=== PATIENT | male | born 1960 | race Caucasian/White ===

== ENCOUNTER 2020-08-10 11:32 | Outpatient (CLI) | payer OTHER, SELFPAY ==
[2020-08-10 12:24] LABS: Anion Gap 5 mmol/L (8-16); Blood Urea Nitrogen 16 mg/dL (9-20); Calcium 9.5 mg/dL (8.4-10.2); Carbon Dioxide 27 mmol/L (22-30); Chloride 105 mmol/L (98-107); Estimated Glomerular Filt Rate > 60; Glucose 105 mg/dL (75-110); Potassium 4.1 mmol/L (3.4-5.0); Sodium 137 mmol/L (137-145)
[2020-08-10 12:55] LABS: Prostate Specific Antigen 1.1 ng/mL (< OR = 4.0)
== END 2020-08-10 11:33 | disposition home or self-care (01) ==
LOC: ANHLAB 11:35
PROVIDERS: PCP Family Medicine; Visit Provider Nurse Practitioner Family
DX: F41.9 Anxiety disorder, unspecified (principal); Z12.5 Encounter for screening for malignant neoplasm of prostate
CPT/HCPCS: 36415; 80048; 84153; 84443; G0103

== ENCOUNTER 2021-06-20 10:49 | Outpatient (CLI) | payer OTHER, SELFPAY ==
--- NOTE | ~2021-06-20 | XR_ITS ---
EXAMINATION: XR knee RT 3V DATE: 06/20/2021 11:08 INDICATION: Right knee pain. TECHNIQUE: 3 views of right knee were obtained. COMPARISON: None. FINDINGS: Bone alignment is normal. No fracture. There is moderate osteoarthritis of patellofemoral c ompartment and mild osteoarthritis of medial and lateral compartments. No knee joint effusion. IMPRESSION: 1. Moderate right knee osteoarthritis. Reviewed, dictated and finalized at location A.
== END 2021-06-20 10:50 | disposition home or self-care (01) ==
PROVIDERS: PCP Family Medicine; Visit Provider Nurse Practitioner Family
DX: M25.569 Pain in unspecified knee (principal); W19.XXXA Unspecified fall, initial encounter; M17.11 Unilateral primary osteoarthritis, right knee
CPT/HCPCS: 73562

== ENCOUNTER 2022-05-11 11:35 | Outpatient (CLI) | payer OTHER, SELFPAY ==
[2022-05-11 11:48] LABS: Basophils Percent Auto 0.7 % (0.2-1.2); Eosinophils Percent Auto 0.7 % (0-4.4); Hematocrit 43.4 % (42.0-52.0); Immature Granulocyte Absolute 0.02 K/mm3 (0.00-0.031); Immature Granulocyte Percent A 0.4 % (0-0.5); Lymphocytes Absolute Auto 1.35 K/mm3 (0.9-3.2); Lymphocytes Percent Auto 24.3 % (18.3-44.2); Mean Corpuscular HGB Conc 32.3 g/dl (32-36); Mean Corpuscular Hemoglobin 32.4 pg (26-34); Mean Corpuscular Volume 100.5 fl (80-100); Mean Platelet Volume 9.4 fl (7.4-10.4); Monocytes Absolute Auto 0.6 K/mm3 (0.1-0.6); Monocytes Percent Auto 10.5 % (2.6-8.5); Neutrophils Absolute Auto 3.5 K/mm3 (1.3-6.7); Neutrophils Percent Auto 63.4 % (45.5-73.1); Platelet Count Result 217 k/mm3 (150-375); Red Blood Count 4.32 M/mm3 (4.6-6.20); White Blood Count 5.6 K/mm3 (4.5-10.0)
[2022-05-11 12:02] LABS: Alanine Aminotransferase 21 U/L (6-50); Albumin Level 4.2 g/dL (3.5-5.1); Alkaline Phosphatase 130 U/L (38-126); Anion Gap 6 mmol/L (8-16); Aspartate Amino Transferase 25 U/L (17-59); Bilirubin,Total 0.9 mg/dL (0.2-1.3); Blood Urea Nitrogen 11 mg/dL (9-20); Calcium 9.1 mg/dL (8.4-10.2); Carbon Dioxide 25 mmol/L (22-30); Chloride 107 mmol/L (98-107); Cholesterol 132 mg/dL (0-200); Estimated Glomerular Filt Rate > 60; Glucose 107 mg/dL (65-110); HDL Direct 45 mg/dL; Potassium 4.2 mmol/L (3.4-5.0); Sodium 138 mmol/L (137-145); Triglycerides 122 mg/dL (<150); Uric Acid 6.5 mg/dL (3.5-8.5)
[2022-05-11 12:08] LABS: Iron 85 ug/dL (49-181)
[2022-05-11 12:13] LABS: LDL Cholesterol Direct 54 mg/dL
[2022-05-11 12:32] LABS: Prostate Specific Antigen 1.1 ng/mL (< OR = 4.0)
[2022-05-11 12:37] LABS: Vitamin D 25 Hydroxy 61.8 ng/mL
[2022-05-11 12:38] LABS: Percent Iron Saturation 26 % (20-50)
== END 2022-05-11 11:36 | disposition home or self-care (01) ==
PROVIDERS: PCP Family Medicine; Visit Provider Nurse Practitioner Family
DX: Z12.5 Encounter for screening for malignant neoplasm of prostate (principal); E61.1 Iron deficiency; E55.9 Vitamin D deficiency, unspecified; I10 Essential (primary) hypertension; E78.2 Mixed hyperlipidemia; M10.9 Gout, unspecified
CPT/HCPCS: 36415; 80053; 80061; 82306; 82728; 83540; 83550; 84153; 84550; 85025; G0103

== ENCOUNTER 2023-10-30 09:07 | Outpatient (CLI) | payer OTHER, SELFPAY ==
[2023-10-30 09:49] LABS: Alanine Aminotransferase 40 U/L (6-50); Albumin Level 4.5 g/dL (3.5-5.1); Alkaline Phosphatase 124 U/L (38-126); Anion Gap 7 mmol/L (8-16); Aspartate Amino Transferase 37 U/L (17-59); Bilirubin,Total 1.1 mg/dL (0.2-1.3); Blood Urea Nitrogen 11 mg/dL (9-20); Calcium 9.4 mg/dL (8.4-10.2); Carbon Dioxide 26 mmol/L (22-30); Chloride 105 mmol/L (98-107); Cholesterol 128 mg/dL (0-200); Estimated Glomerular Filt Rate > 60; Glucose 103 mg/dL (65-110); HDL Direct 49 mg/dL; Hematocrit 48.6 % (42.0-52.0); Hemoglobin 15.7 g/dL (14.0-18.0); Mean Corpuscular HGB Conc 32.3 g/dl (32-36); Mean Corpuscular Hemoglobin 32.2 pg (26-34); Mean Corpuscular Volume 99.6 fl (80-100); Mean Platelet Volume 10.2 fl (7.4-10.4); Platelet Count Result 218 k/mm3 (150-375); Potassium 4.1 mmol/L (3.4-5.0); Red Blood Count 4.88 M/mm3 (4.6-6.20); Red Cell Distribution Width 13.8 % (11.5-14.5); Sodium 138 mmol/L (137-145); Triglycerides 103 mg/dL (<150); White Blood Count 6.6 K/mm3 (4.5-10.0)
[2023-10-30 10:02] LABS: LDL Cholesterol Direct 56 mg/dL
[2023-10-30 10:19] LABS: Prostate Specific Antigen 1.7 ng/mL (< OR = 4.0)
== END 2023-10-30 09:08 | disposition home or self-care (01) ==
LOC: ANHLAB 09:09
PROVIDERS: PCP Family Medicine; Visit Provider Nurse Practitioner Family
DX: E78.2 Mixed hyperlipidemia (principal); I10 Essential (primary) hypertension; N52.9 Male erectile dysfunction, unspecified; Z13.29 Encounter for screening for other suspected endocrine disorder
CPT/HCPCS: 36415; 80053; 80061; 84153; 84443; 85027

== ENCOUNTER 2025-08-19 10:06 | Outpatient (CLI) | payer MEDICARE, SELFPAY ==
--- OUTSIDE RECORDS SUMMARY | 2025-08-19 10:50 | XMS_ITS | Clinical Summary ---
Author Organization [facility] Address [address] [place] [address] Care Team Providers Care Counter Molder Name Role Phone Boy Tirado MD Primary Care Provider [phone] Source Comments [facility],non-owned Affiliates and Associated Physician Practices is amultiple site organization consisting of ambulatory clinics and hospital sitesin [place], [place], [place] and [place]. This disclosure is being madepursuant to the Care Everywhere program and may not contain all information available regarding this patient. Last updated 18.[facility] Allergies No known active allergies Medications * Be aware that medications may not be up to date on this document. Alwaysverify current medications with the patient. aspirin EC (ECOTRIN) 81 MG tabletIndications:Non specific abnormal electrocardiogram (ECG) (EKG),Hypertriglyceri demia,Inferolateral myocardial infarction (HCC) Take 81 mg by mouth once daily Active multivitamin daily (THERAGRAN) tabletIndications:Non specific abnormal electrocardiogram (ECG) (EKG),Hypertriglyceri demia,Inferolateral myocardial infarction (HCC) Take 1 Tab by mouth daily with food Active PARoxetine (PAXIL) 20 MG tablet Take 20 mg by mouth once daily 05/03/20 16 Active allopurinol (ZYLOPRIM) 300 MG tablet Take 300 mg by mouth once daily 05/21/20 17 Active vitamin D (CHOLECACIFEROL) 5000 UNITS capsule Take 5,000 Units by mouth once daily Active ferrous sulfate 325 (65 FE) MG tablet Take 325 mg by mouth daily with breakfast Active metoprolol succinate XL 24hr (TOPROL XL) 25 MG tablet TAKE ONE TABLET BY MOUTH ONCE DAILY 30 tablet 3 07/29/20 18 Active atorvastatin (LIPITOR) 80 MG tablet TAKE ONE TABLET BY MOUTH ONCE DAILY 30 tablet 11 12/01/19 20 Active Active Problems Problem Noted Date Diagnosed Date Coronary artery disease invo lving [place] coronary artery without angina pectoris 05/04/2016 Overview (05/04/2016): 05/04 CAD/Cath - PB hypo; EF - 55 - 100% mRCA; 100% pCx - 80% diag; 50% mLAD with negative FFR HTN (hypertension) 05/04/2016 Dyslipidemia 05/04/2016 Social History Tobacco Use Types Packs/Day Years Used Date Smoking Tobacco: Former Cigarettes 0.5 10 Smokeless Tobacco: Never Tobacco Cessation:Ready to Q uit: No Alcohol Use Standard Drinks/Week Comments Yes 2 (1 standard drink = 0.6 oz pur e alcohol) Sex and Gender Information Value Date Recorded Sex Assigned at Not on file 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 Gender Identity Not on file Sexual Orientation Not on file Last Filed Vital Signs Vital Sign Reading Time Taken Comments Blood Pressure 144/84 06/14/2017 10:59 AM CDT Pulse 65 06/14/2017 10:59 AM CDT Temperature - - Respiratory Rate 16 05/04/2016 12:55 PM CDT Oxygen Saturation 95% 06/14/2017 10:59 AM CDT Inhaled Oxygen Concentration - - Weight 108 kg (238 lb) 06/14/2017 10:59 AM CDT Height 175.3 cm (5' 9) 06/14/2017 10:59 AM CDT Body Mass Index 35.15 06/14/2017 10:59 AM CDT Plan of Treatment Health Maintenance Due Date Last Done Comments COLOGUARD (AGES 45-75) - COL ON CA SCREENING 1960 COLON MONITORING 1960 COLONOSCOPY - COLON CA SCREENING 1960 CT COLONOGRAPHY - COLON CA SCREENING 1960 Colorectal Cancer Screening 1960 FIT - COLON CA SCREENING 1960 FLEX SIG - COLON CA SCREENING 1960 HIV SCREENING 1975 HEPATITIS C SCREENING 08/27/1978 DTAP/TDAP/TD VACCINES (1 - Tdap) 1979 PNEUMOCOCCAL VACCINE 50+ (1 of 1 - PCV) 2010 ZOSTER VACCINE (1 of 2) 2010 SCREENING FOR DIABETES 06/14/2017 DEPRESSION SCREENING 11/19/2024 COVID-19 VACCINE (2023-2 5 season) 2025 INFLUENZA VACCINE (#1) 2025 Respiratory Syncytial Virus (RSV) Vaccine Pt: or over 60 yrs (1 - 1-dose 75+ series) 2035 HEPATITIS B VACCINE Aged Out No longe r eligible based on patient's age to complete this topic HIB VACCINE Aged Out No longer eligi ble based on patient's age to complete this topic HPV VACCINE Aged Out No longer eligi ble based on patient's age to complete this topic MENINGOCOCCAL (Group B) VACC INE SHARED DECISION-MAKING Aged Out No longer eligibl e based on patient's age to complete this topic MENINGOCOCCAL GROUPS A/C/Y/W VACCINE Aged Out No longer eligible b ased on patient's age to complete this topic Insurance ANTHEM Care Teams Counter Molder Relationship Specialty Start Date End Date Boy Tirado MD [address] [place] [address] PCP - General Family Medicine 04/14/16
--- OUTSIDE RECORDS SUMMARY | 2025-08-19 10:50 | XMS_ITS | Clinical Summary ---
Author Organization [facility] Address [address] [place] [address] Care Team Providers Care Psychotherapist Social Worker Name Role Phone Boy Tirado MD Primary Care Provider [phone] Allergies No known active allergies Medications allopurinol (ZYLOPRIM) 300 mg tablet Take 1 tablet (300 mg total) by mouth daily 04/29/2018 Active aspirin 81 mg tablet Take 1 tablet (81 mg total) by mouth daily Active metoprolol XL (TOPROL-XL) 25 mg 24 hr tablet Take 1 tablet (25 mg total) by mouth daily 04/29/2018 Active multivitamin tabletIndication s:Vitamin Deficiency Prevention Take 1 tablet by mouth daily Active atorvastatin (LIPITOR) 80 mg tablet TAKE 1 TABLET(80 MG) BY MOUTH DAILY 90 tablet 1 06/22/2025 Active Active Problems Problem Noted Date Diagnosed Date Coronary artery disease invo lving [place] coronary artery of [place] heart without angina pectoris 04/29/2019 Encounters Date Type Department Care Team Description 05/21/2025 11:15 AM CDT Office Visit [facility] Card[facility] [address] [place] [address] Leno Anguiano MD Coronary artery disease involving [place] coronary artery of [place] heart without angina pectoris (Primary Dx) from Last 3 Months Surgical History Surgery Date Site/Laterality Comments FRACTURE SURGERY 11/19/1976 - 11/18/1977 LASIK 1990 s SPINE SURGERY 11/19/2015 - 11/18/2016 Medical History Medical History Date Comments CAD (coronary artery disease) Anemia 2019 Social History Tobacco Use Types Packs/Day Years Used Date Smoking Tobacco: Former Cigarettes Q uit: 11/04/2016 Smokeless Tobacco: Never Tobacco Cessation:Counseling Given: Not Answered Alcohol Use Standard Drinks/Week Comments No 0 (1 standard drink = 0.6 oz pur e alcohol) Sex and Gender Information Value Date Recorded Sex Assigned at Not on file Legal Sex Male 1:34 AM SHOVE UP Gender Identity Male 04/22/2019 7:29 AM CDT Sexual Orientation Straight 04/22/2019 7: 29 AM CDT Obstetrics History Last Filed Vital Signs Vital Sign Reading Time Taken Comments Blood Pressure 118/64 05/21/2025 11:04 AM CDT Pulse 53 05/21/2025 11:04 AM CDT Temperature 36.3 C (97.4 F) 04/13/2022 11:45 PM CDT Respiratory Rate 18 04/13/2022 11:46 PM CDT Oxygen Saturation 97% 05/21/2025 11:04 AM CDT Inhaled Oxygen Concentration - - Weight 86.7 kg (191 lb 3.2 oz) 05/21/2025 11:04 AM CDT Height 177.8 cm (5' 10) 05/21/2025 11:04 AM CDT Body Mass Index 27.43 05/21/2025 11:04 AM CDT Plan of Treatment Health Maintenance Due Date Last Done Comments Colon Cancer Screening-Colonoscopy 1960 Depression Screening 1960 Hepatitis C Screening 1960 Prostate Cancer Screening-PSA 1960 DTaP/Tdap/Td Vaccine (1 - Tdap) 1971 Hepatitis B Screening 1978 Regular Well Visit/Exam 18-64 1978 Zoster Vaccine (1 of 2) 2010 Influenza Vaccine (#1) 2025 08/29/2023 Pneumococcal vaccine <65 Aged Out No longer eligible based on patient's age to complete this topic Procedures Procedure Name Priority Date/Time Associated Diagnosis Comments POCT LIPID PANEL Routine 05/21/2025 10:5 9 AM CDT Coronary artery disease involving [place] coronary artery of [place] heart without angina pectoris from Last 3 Months Results * POCT lipid panel (05/21/2025 10:59 AM CDT) Cholesterol, POC 113 <200 MG/DL Comment:GLU = 107 HDL, POC 51 >=40 mg/dL Triglycerides, POC 68 <=149 mg/dL LDL Cholesterol POC 49 <=129 mg/dL Chol/HDL Ratio, POC 1.0 NONE Non-HDL Cholesterol, POC 62 NONE mg/dL Cholesterol Total, POC 113 30 - 199 mg/dL Capillary blood 05/21/2025 1 0:59 AM CDT Leno Anguiano MD POINT OF CARE TEST ORDER NINFA Final Result from Last 3 Months Insurance [facility] Care Teams Psychotherapist Social Worker Relationship Specialty Start Date End Date Boy Tirado MD PCP - General 02/06/17
[2025-08-19 10:54] LABS: Hematocrit 45.1 % (42.0-52.0); Hemoglobin 14.5 g/dL (14.0-18.0); Immature Granulocyte Percent A 0.5 % (0-0.5); Lymphocytes Absolute Auto 1.38 K/mm3 (0.9-3.2); Mean Corpuscular HGB Conc 32.2 g/dl (32-36); Mean Corpuscular Hemoglobin 32.6 pg (26-34); Mean Corpuscular Volume 101.3 fl (80-100); Nucleated Red Blood Cells Absolute Auto 0.000 K/mm3 (0.0-0.012); Nucleated Red Blood Cells Perc 0.0 % (0.0-0.2); Platelet Count Result 218 k/mm3 (150-375); Red Blood Count 4.45 M/mm3 (4.6-6.20); White Blood Count 6.2 K/mm3 (4.5-10.0)
[2025-08-19 11:19] LABS: Alanine Aminotransferase 37 U/L (6-50); Albumin Level 4.0 g/dL (3.5-5.1); Alkaline Phosphatase 134 U/L (38-126); Anion Gap 6 mmol/L (4-12); Aspartate Amino Transferase 36 U/L (17-59); Bilirubin,Total 1.3 mg/dL (0.2-1.3); Blood Urea Nitrogen 12 mg/dL (9-20); Calcium 9.0 mg/dL (8.4-10.2); Carbon Dioxide 27 mmol/L (22-30); Chloride 105 mmol/L (98-107); Cholesterol 118 mg/dL (0-200); Estimated Glomerular Filt Rate > 60; Glucose 93 mg/dL (65-110); HDL Direct 55 mg/dL; Potassium 3.9 mmol/L (3.4-5.0); Sodium 138 mmol/L (137-145); Total Protein 6.6 g/dL (6.3-8.2); Triglycerides 72 mg/dL (<150)
[2025-08-19 11:57] LABS: Prostate Specific Antigen 1.2 ng/mL (< OR = 4.0); Thyroid Stimulating Hormone 1.280 uIU/mL (0.465-4.680)
== END 2025-08-19 10:07 | disposition home or self-care (01) ==
PROVIDERS: PCP Family Medicine; Visit Provider Nurse Practitioner Family
DX: E78.2 Mixed hyperlipidemia (principal); Z13.29 Encounter for screening for other suspected endocrine disorder; E55.9 Vitamin D deficiency, unspecified; Z12.5 Encounter for screening for malignant neoplasm of prostate; Z13.1 Encounter for screening for diabetes mellitus; Z13.220 Encounter for screening for lipoid disorders
CPT/HCPCS: 36415; 80053; 80061; 82306; 84153; 84443; 85025; G0103

== ENCOUNTER 2025-10-14 01:12 | Day surgery (SDC) | payer MEDICARE, SELFPAY ==
[2025-09-29 10:00] VITALS: BMI 25.9
--- OUTSIDE RECORDS SUMMARY | 2025-10-14 01:15 | XMS_ITS | Clinical Summary ---
Author Organization [facility] Address [address] [place] [address] Care Team Providers Care Detective Investigator Name Role Phone Boy Tirado MD Primary Care Provider [phone] Source Comments [facility],non-owned Affiliates and Associated Physician Practices is amultiple site organization consisting of ambulatory clinics and hospital sitesin [place], [place], [place] and [place]. This disclosure is being madepursuant to the Care Everywhere program and may not contain all information available regarding this patient. 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
[2025-10-14 09:21] VITALS: BP 134/66; PULSE 57; RESP 19; TEMP 36.5; O2SAT 98; BMI 26.2
[2025-10-14] MEDS: LACTATED RINGERS 1,000 ML 150 ML IV CONT (09:29)
--- NOTE | 2025-10-14 09:56 | WPDANESEPPF ---
Anes - Initial Pre Proc Eval Procedure: Operation Date: 10/14/25 10:30 Proposed Procedures p Screening Colonoscopy - Jeremías Shine MD Date/Time: 10/14/25 09:56 Surgeon: Jeremías Shine MD Pre Op Diagnosis: Personal history of colon polyps, unspecified Patient Data Age: 65 Gender: M Height: 1.78 m Weight: 83.1 kg Last Vital Signs Temp 97.7 F 10/14/25 09:21 Pulse 57 L 10/14/25 09:21 Resp 19 10/14/25 09:21 BP 134/66 10/14/25 09:21 Pulse Ox 98 10/14/25 09:21 O2 Del Method Room Air 10/14/25 09:21 Allergies Allergy/AdvReac Type Severity Reaction Status Date / Time No Known Allergies Allergy Verified 10/14/25 09:19 Home Medications ?Medication ?Instructions ?Recorded ?Confirmed ?Type aspirin 81 mg tablet,delayed 81 mg PO DAILY 04/20/22 10/14/25 History release (Adult Aspirin Regimen) atorvastatin 80 mg tablet 80 mg PO DAILY 04/20/22 10/14/25 History sildenafil 100 mg tablet 100 mg PO DAILY PRN sexual 09/21/24 10/14/25 Rx activity #30 tabs colchicine 0.6 mg tablet 0.6 mg PO BID PRN gout 08/19/25 10/14/25 History ferrous sulfate 325 mg (65 mg 325 mg PO DAILY PRN RLS 08/19/25 09/29/25 History iron) tablet metoprolol succinate 25 mg See Rx Instructions .Route 09/22/25 10/14/25 Rx tablet,extended release 24 hr .COMPLEX #90 tabs allopurinol 300 mg tablet See Rx Instructions .Route 09/25/25 10/14/25 Rx .COMPLEX #90 tabs Patient hx anesthesia problems: none Family hx anesthesia problems: none Results Review: All pre-operative results and documents have been reviewed as part of the pre-operative evaluation. [facility] Past Medical History Medical History Encounter for wellness examination Vitamin D deficiency Weakness Chronic right shoulder pain Right shoulder pain HPV exposure Screening for diabetes mellitus Erectile dysfunction Family History Family History Grandparent Acute myocardial infarction Father Mother Kidney failure Sibling Heart disease Social History Social History Smoking packs per day: 0.5 Smoking cigarettes per day: 10.0 Years smoked: 30 Smoking pack-years: 15.00 Smoking status: Former smoker Tobacco type: cigarettes Second hand tobacco smoke exposure: Yes Smoking end date: 11/19/16 Alcohol intake: current Drinks per week: 2 Substance use: never Substance use type: does not use Lack of Transportation: No Lack of Food: Never True Current Housing: I Have Housing Concerned About Future Housing: No Difficulty Paying Gas/Electric Bills: No Difficulty Paying for Meds: No Currently Unemployed: No Difficulty w/ Childcare or Family Care: No Living arrangements: with family Occupation/Education: retired Additional occupation/education comments: [employer] Gender identity (if verbalized by the patient): Male Spiritual care concerns: No Anes - Eval Final PreProcedure Day of Procedure 10/14/25 09:56 Patient weight: normal Lungs: normal air movement Airway: Mallampati scale class II Neurological: alert and oriented Last oral intake: >/= 8 hours ASA classification: III Emergent: no Anesthetic plan: proceed Anesthesia type and monitoring: general GIVS and standard monitoring Results Review: All pre-operative results and documents have been reviewed as part of the pre-operative evaluation. HTN, hyperlipidemia, mild CAD to RCA w collaterals, no cp or sob. Informed Consent: The patient's anesthetic plan and its attendant risks and benefits were discussed with the patient/family/POA. Questions were solicited and answers provided to the satisfaction of the patient/family/POA.
--- NOTE | 2025-10-14 10:02 | PM.IMHP ---
H&P: HPI History of Present Illness Date/Time: 10/14/25 10:02 Chief Complaint: History of colon polyps Narrative: The patient has a history of colonic polyps, the last colonoscopy was 5 years ago. Review of Systems Review of Systems: All systems reviewed & are unremarkable except as noted in HPI and below PMFSH Past Medical History Medical History Encounter for wellness examination Vitamin D deficiency Weakness Chronic right shoulder pain Right shoulder pain HPV exposure Screening for diabetes mellitus Erectile dysfunction Family History Family History Grandparent Acute myocardial infarction Father Mother Kidney failure Sibling Heart disease Social History Social History Smoking packs per day: 0.5 Smoking cigarettes per day: 10.0 Years smoked: 30 Smoking pack-years: 15.00 Smoking status: Former smoker Tobacco type: cigarettes Second hand tobacco smoke exposure: Yes Smoking end date: 11/19/16 Alcohol intake: current Drinks per week: 2 Substance use: never Substance use type: does not use Lack of Transportation: No Lack of Food: Never True Current Housing: I Have Housing Concerned About Future Housing: No Difficulty Paying Gas/Electric Bills: No Difficulty Paying for Meds: No Currently Unemployed: No Difficulty w/ Childcare or Family Care: No Living arrangements: with family Occupation/Education: retired Additional occupation/education comments: [employer] Gender identity (if verbalized by the patient): Male Spiritual care concerns: No Meds Home Medications and Allergies Home Medications ?Medication ?Instructions ?Recorded ?Confirmed ?Type aspirin 81 mg tablet,delayed 81 mg PO DAILY 04/20/22 10/14/25 History release (Adult Aspirin Regimen) atorvastatin 80 mg tablet 80 mg PO DAILY 04/20/22 10/14/25 History sildenafil 100 mg tablet 100 mg PO DAILY PRN sexual 09/21/24 10/14/25 Rx activity #30 tabs colchicine 0.6 mg tablet 0.6 mg PO BID PRN gout 08/19/25 10/14/25 History ferrous sulfate 325 mg (65 mg 325 mg PO DAILY PRN RLS 08/19/25 09/29/25 History iron) tablet metoprolol succinate 25 mg See Rx Instructions .Route 09/22/25 10/14/25 Rx tablet,extended release 24 hr .COMPLEX #90 tabs allopurinol 300 mg tablet See Rx Instructions .Route 09/25/25 10/14/25 Rx .COMPLEX #90 tabs Allergies Allergy/AdvReac Type Severity Reaction Status Date / Time No Known Allergies Allergy Verified 10/14/25 09:19 Vital Signs Vital Signs - 24 hr 10/14/25 09:21 Temperature 97.7 F Pulse Rate 57 L Respiratory Rate 19 Blood Pressure 134/66 Pulse Oximetry 98 Oxygen Delivery Room Air Exam Const: General: cooperative and healthy appearing Resp: Effort & Inspection: normal respiratory effort and able to speak in complete sentences Auscultation: clear to auscultation bilaterally Cardio: Rate: regular rate Rhythm: regular rhythm GI: Inspection: normal to inspection GI Palp: No No hepatosplenomegaly present Auscultation: normal bowel sounds Rectal Exam: deferred Skin: General skin exam: normal color Psych: Appearance: grossly normal Mental Status: mental status grossly normal Assessment and Plan Assessment and plan (1) History of colonic polyps: Code(s): Z86.0100 - Personal history of colon polyps, unspecified Status: Acute Assessment and Plan: The patient is deemed a good candidate for the procedure. Consent signed. Will proceed.
--- NOTE | 2025-10-14 10:51 | S_PTH ---
PATIENT: Del Guerin LOC: [facility]#:[id number] AGE/SX: 65/M ROOM: RE10/14/[address]: Jeremías Shine MD : 1960 BED: DIS: 10/14/2025 SPEC #: [id number] RECD: 10/14/25 12:52 STATUS: AGUSTINA REQ #: [id number] ZEENAT: 10/14/25 10:[address]: Jeremías Shine DEPT: [facility] Surgical RECD BY: Nina Blank ENTERED: 10/14/25 12:54 SP TYPE: Surgical OTHR DR: Boy Tirado MD Tissues: A - Colon Polypectomy B - Colon Polypectomy C - Colon Polypectomy D - Colon Polypectomy Procedures: Hematoxylin and Eosin Stain Gross and Microscopic Level 4
[2025-10-14 10:57] VITALS: BP 103/68; PULSE 53; RESP 11; O2SAT 97
[2025-10-14 11:07] VITALS: BP 114/68; PULSE 54; RESP 19; O2SAT 100
[2025-10-14 11:17] VITALS: BP 135/98; PULSE 55; RESP 19; O2SAT 100
== END 2025-10-14 11:31 | disposition home or self-care (01) ==
PROVIDERS: PCP Family Medicine; Referring Provider Nurse Practitioner Family; Visit Provider Internal Medicine Gastroenterology
PROC: 0DJD8ZZ Inspection of Lower Intestinal Tract, Via Natural or Artificial Opening Endoscopic (ICD-10-PCS; CPT 45378; principal; 2025-10-14 10:30)
DX: Z12.11 Encounter for screening for malignant neoplasm of colon (principal); D12.2 Benign neoplasm of ascending colon; D12.3 Benign neoplasm of transverse colon; D12.4 Benign neoplasm of descending colon; K63.5 Polyp of colon; K57.30 Diverticulosis of large intestine without perforation or abscess without bleeding; K64.8 Other hemorrhoids; Z87.891 Personal history of nicotine dependence
CPT/HCPCS: 45385; 88305; J2003; J2704; J7120